=== PATIENT | male | born 1965 | race American Indian/Alaskan Native ===

== ENCOUNTER 2017-05-07 10:01 | Emergency (ER) | payer BC ==
[2017-05-07 14:46] VITALS: BP 142/81
--- NOTE | 2017-05-07 14:46 | Emergency Department Report ---
HPI - General Chief Complaint: Headache Time Seen by Provider: 05/07/17 14:41 - HPI HPI: Mr. Garcia is a healthy 51-year-old male with history of asthma and gout who presents with flulike illness. "I feel fine now. I just want to get checked out." His and granddaughter both have flulike symptoms. Throughout the week he self medicated with rest and hydration for fever headache bodyaches and nonproductive cough. He feels much better. He desires clearance to return back to work. He is currently symptom-free. ED Past Medical Hx - Past Medical History Previous Medical History?: Yes Hx Asthma: Yes Additional medical history: "gout" - Surgical History Past Surgical History?: No - Social History Smoking Status: Current Every Day Smoker Substance Use Type: None - Medications Home Medications: Home Medications Medication Instructions Recorded Confirmed Last Taken Type Colchicine 0.6 mg PO DAILY #20 capsule 09/05/14 Unknown Rx Ibuprofen [Motrin 800 MG tab] 800 mg PO Q8H PRN #30 tablet 09/05/14 Unknown Rx ED Review of Systems ROS: Stated complaint: FLU LIKE SYMPTOMS Other details as noted in HPI Comment: All other systems reviewed and negative Constitutional: fever, malaise, weakness Respiratory: cough Cardiovascular: denies: chest pain Physical Exam - Physical Exam Vital Signs: Vital Signs 05/07/17 10:29 Temperature 98.4 F Pulse Rate 59 L Respiratory 18 Rate Blood Pressure 143/92 O2 Sat by Pulse 96 Oximetry Physical Exam: General: Well-appearing, no acute distress HEENT: Normocephalic atraumatic pupils equal round and reactive to light anicteric sclera Nose: no rhinorrhea Oropharynx: Clear mucous membranes no lesions Neck: supple, no meningismus Chest: Clear to auscultation bilaterally no rales rhonchi no wheezes Cardiac: Regular rate and rhythm no murmurs no rubs no gallops Abdomen: Soft nontender nondistended positive bowel sounds no guarding Extremities: No cyanosis no clubbing no edema Neuro: Moves all extremities 4, no gross deficits Psychiatric: Alert and oriented 4 normal aspect normal judgment normal insight ED Course Vital Signs 05/07/17 10:29 Temperature 98.4 F Pulse Rate 59 L Respiratory 18 Rate Blood Pressure 143/92 O2 Sat by Pulse 96 Oximetry ED Medical Decision Making - Medical Decision Making Mr. Oldsmar is a pleasant well-appearing male with flulike symptoms. Clinical diagnosis of influenza. He has had symptoms for approximately one week. I recommended continuing home therapy. He is currently afebrile. He received education and reassurance. Discharged home in good stable condition. Critical care attestation.: If time is entered above; I have spent that time in minutes in the direct care of this critically ill patient, excluding procedure time. ED Disposition Clinical Impression: Influenza Disposition: DC-01 TO HOME OR SELFCARE Is pt being admited?: No Does the pt Need Aspirin: No Condition: Stable Instructions: Influenza (ED) Referrals: PRIMARY CARE, [Primary Care Provider] - as needed Forms: Work/School Release Form(ED) Time of Disposition: 14:45
== END 2017-05-07 14:55 | disposition home or self-care (01) ==
LOC: ED 10:01
DX: J11.1 Influenza due to unidentified influenza virus with other respiratory manifestations (principal); J45.909 Unspecified asthma, uncomplicated; F17.200 Nicotine dependence, unspecified, uncomplicated
CPT/HCPCS: 99282

== ENCOUNTER 2020-02-21 16:05 | Emergency (ER) | payer SELFPAY ==
[2020-02-21 17:24] VITALS: BP 126/96
[2020-02-21] MEDS ORDERED: KETOROLAC 10 MG TAB PO ONE (17:24)
[2020-02-21] MEDS ORDERED: dexAMETHasone 20 MG/5 ML VIAL IV ONE (17:25)
--- NOTE | 2020-02-21 17:25 | Emergency Department Report ---
ED General Adult HPI - General Chief complaint: Extremity Problem,Nontraumatic Stated complaint: GOUT Time Seen by Provider: 02/21/20 17:24 Source: patient Mode of arrival: Wheelchair Limitations: No Limitations - History of Present Illness Initial comments: 54-year-old -[place] male patient presents with complaints of left ankle pain x 4 days. Patient states he has history of gout in the same foot and this feels similar. He reports that he drink a great deal of beer, ate shellfish, and ate red meat the day prior to his symptoms starting. He rates his pain as a 9/10 in severity and states it worsens with ambulation and movement. He denies any fever/chills/sweats, history of cancer/diabetes, or numbness/tingling/weakness in his ankle or foot. - Related Data Previous Rx's Medication Instructions Recorded Last Taken Type Colchicine 0.6 mg PO DAILY #20 capsule 09/05/14 Unknown Rx Ibuprofen [Motrin 800 MG tab] 800 mg PO Q8H PRN #30 tablet 09/05/14 Unknown Rx Indomethacin 50 mg PO Q8H 5 Days #15 capsule 02/21/20 Unknown Rx predniSONE [Deltasone] 20 mg PO BID 3 Days #6 tab 02/21/20 Unknown Rx Allergies Allergy/AdvReac Type Severity Reaction Status Date / Time No Known Allergies Allergy Unverified 09/05/14 15:10 ED Review of Systems ROS: Stated complaint: GOUT Other details as noted in HPI Constitutional: denies: chills, diaphoresis, fever, malaise, weakness Endocrine: denies: excessive sweating Gastrointestinal: denies: nausea, vomiting Musculoskeletal: joint swelling, arthralgia Skin: denies: rash, lesions, change in color Neurological: denies: headache, numbness, paresthesias Hematological/Lymphatic: denies: easy bleeding, easy bruising ED Past Medical Hx - Past Medical History Previous Medical History?: Yes Hx Asthma: Yes Additional medical history: "gout" - Social History Smoking Status: Current Every Day Smoker Substance Use Type: None - Medications Home Medications: Home Medications Medication Instructions Recorded Confirmed Last Taken Type Colchicine 0.6 mg PO DAILY #20 capsule 09/05/14 Unknown Rx Ibuprofen [Motrin 800 MG tab] 800 mg PO Q8H PRN #30 tablet 09/05/14 Unknown Rx Indomethacin 50 mg PO Q8H 5 Days #15 capsule 02/21/20 Unknown Rx predniSONE [Deltasone] 20 mg PO BID 3 Days #6 tab 02/21/20 Unknown Rx ED Physical Exam - General Limitations: No Limitations General appearance: alert, in no apparent distress - Head Head exam: Present: atraumatic, normocephalic - Eye Eye exam: Present: normal appearance. Absent: scleral icterus - Neck Neck exam: Present: normal inspection - Respiratory Respiratory exam: Absent: respiratory distress - Cardiovascular Cardiovascular Exam: Present: regular rate - Expanded Lower Extremity Exam Left Ankle exam: Present: full ROM, tenderness, swelling (Minimal). Absent: laceration, ecchymosis, deformity, crepidus, erythema Foot/Toe exam: Present: normal inspection, full ROM Neuro vascular tendon exam: Present: no vascular compromise - Neurological Exam Neurological exam: Present: alert, oriented X3 - Psychiatric Psychiatric exam: Present: normal affect, normal mood - Skin Skin exam: Present: warm, dry, intact, normal color. Absent: rash ED Course Vital Signs 02/21/20 02/21/20 17:23 17:31 Temperature 98 F Pulse Rate 97 H Respiratory 18 20 Rate Blood Pressure 126/96 [Right] O2 Sat by Pulse 98 Oximetry ED Medical Decision Making - Medical Decision Making 54-year-old -[place] male patient presents with complaints of left ankle pain x 4 days. Patient states he has history of gout in the same foot and this feels similar. He reports that he drink a great deal of beer, ate shellfish, and ate red meat the day prior to his symptoms starting. He rates his pain as a 9/10 in severity and states it worsens with ambulation and movement. He denies any fever/chills/sweats, history of cancer/diabetes, or numbness/tingling/weakness in his ankle or foot. Will treat for gout with NSAIDs and steroids. Recommend follow-up with primary care. He is well-appearing and stable for discharge home. Strict return precautions were discussed in detail with patient who verbalized understanding. Critical care attestation.: If time is entered above; I have spent that time in minutes in the direct care of this critically ill patient, excluding procedure time. ED Disposition Clinical Impression: Gout flare Qualifiers: Gout site: ankle Gout etiology: idiopathic Laterality: left Qualified Code(s): M10.072 - Idiopathic gout, left ankle and foot Disposition: DC-01 TO HOME OR SELFCARE Is pt being admited?: No Condition: Stable Instructions: Low-Purine Eating Plan Prescriptions: predniSONE [Deltasone] 20 mg PO BID 3 Days #6 tab Indomethacin 50 mg PO Q8H 5 Days #15 capsule Referrals: [facility] [Provider Group] - 3-5 Days Forms: Work/School Release Form(ED)
== END 2020-02-21 17:44 | disposition home or self-care (01) ==
LOC: ED 16:05
DX: M10.072 Idiopathic gout, left ankle and foot (principal)
CPT/HCPCS: 96374; 99282; J1100

== ENCOUNTER 2020-06-27 17:29 | Emergency (ER) | payer OTHER ==
[2020-06-27 17:35] VITALS: BP 149/93
[2020-06-27] MEDS ORDERED: KETOROLAC 60 MG/2 ML INJ IM ONE (18:08)
[2020-06-27] MEDS ORDERED: dexAMETHasone 20 MG/5 ML VIAL IV ONE (18:08)
--- NOTE | 2020-06-27 18:56 | Emergency Department Report ---
ED General Adult HPI - General Chief complaint: Extremity Injury, Lower Stated complaint: LEFT FOOT GOUT Time Seen by Provider: 06/27/20 17:32 Source: patient Mode of arrival: Ambulatory Limitations: No Limitations - History of Present Illness Initial comments: 55-year-old -[place] male patient presents with complaints of left ankle pain due to a gouty flare x 1 day. Patient states his gout flares only occurring his left ankle. He denies any injury, fever/chills/sweats, redness to the joint, or difficulty moving the joint. No numbness or tingling per patient. He rates his pain as a 10/10 in severity. He admits to recently drinking a high intake of beer Severity scale (0 -10): 7 - Related Data Previous Rx's Medication Instructions Recorded Last Taken Type Colchicine 0.6 mg PO DAILY #20 capsule 09/05/14 Unknown Rx Ibuprofen [Motrin 800 MG tab] 800 mg PO Q8H PRN #30 tablet 09/05/14 Unknown Rx Acetaminophen/Codeine [Tylenol 1 tab PO Q8H PRN #6 tab 06/27/20 Unknown Rx /Codeine # 3 tab] Indomethacin 50 mg PO Q8H 5 Days #15 capsule 06/27/20 Unknown Rx predniSONE [Deltasone] 20 mg PO BID 3 Days #6 tab 06/27/20 Unknown Rx Allergies Allergy/AdvReac Type Severity Reaction Status Date / Time No Known Allergies Allergy Verified 06/27/20 17:29 ED Review of Systems ROS: Stated complaint: LEFT FOOT GOUT Other details as noted in HPI Constitutional: denies: chills, fever, malaise Cardiovascular: denies: chest pain Musculoskeletal: arthralgia. denies: joint swelling Skin: denies: rash, lesions, change in color ED Past Medical Hx - Past Medical History Hx Asthma: Yes Additional medical history: "gout" - Surgical History Past Surgical History?: No - Social History Smoking Status: Never Smoker Substance Use Type: None - Medications Home Medications: Home Medications Medication Instructions Recorded Confirmed Last Taken Type Colchicine 0.6 mg PO DAILY #20 capsule 09/05/14 Unknown Rx Ibuprofen [Motrin 800 MG tab] 800 mg PO Q8H PRN #30 tablet 09/05/14 Unknown Rx Acetaminophen/Codeine [Tylenol 1 tab PO Q8H PRN #6 tab 06/27/20 Unknown Rx /Codeine # 3 tab] Indomethacin 50 mg PO Q8H 5 Days #15 capsule 06/27/20 Unknown Rx predniSONE [Deltasone] 20 mg PO BID 3 Days #6 tab 06/27/20 Unknown Rx ED Physical Exam - General Limitations: No Limitations General appearance: alert, in no apparent distress - Head Head exam: Present: atraumatic, normocephalic - Eye Eye exam: Absent: scleral icterus - Respiratory Respiratory exam: Absent: respiratory distress - Cardiovascular Cardiovascular Exam: Present: regular rate - Extremities Exam Extremities exam: Present: full ROM, tenderness (Tenderness to palpation noted to left ankle without erythema or swelling; no warmth to the joint; normal pedal pulse) - Neurological Exam Neurological exam: Present: alert, oriented X3 - Psychiatric Psychiatric exam: Present: normal affect, normal mood - Skin Skin exam: Present: warm, dry, intact, normal color. Absent: rash, diaphoretic, erythema, ecchymosis ED Course Vital Signs 06/27/20 17:34 Temperature 99.1 F Pulse Rate 87 Respiratory 20 Rate Blood Pressure 149/93 O2 Sat by Pulse 96 Oximetry ED Medical Decision Making - Medical Decision Making 55-year-old -[place] male patient presents with complaints of left ankle pain due to a gouty flare x 1 day. Patient states his gout flares only occurring his left ankle. He denies any injury, fever/chills/sweats, redness to the joint, or difficulty moving the joint. No numbness or tingling per patient. He rates his pain as a 10/10 in severity. He admits to recently drinking a high intake of beer Patient given Decadron and Toradol for gout flare. Will send home with NSAIDs and prednisone. Recommend follow-up with primary care in 3 to 5 days. Strict return precautions discussed in detail with patient who verbalizes understanding. His vitals are stable he is well-appearing and stable for discharge home Critical care attestation.: If time is entered above; I have spent that time in minutes in the direct care of this critically ill patient, excluding procedure time. ED Disposition Clinical Impression: Acute gout of ankle Disposition: - TO HOME OR SELFCARE Is pt being admited?: No Condition: Stable Instructions: Low-Purine Eating Plan Prescriptions: predniSONE [Deltasone] 20 mg PO BID 3 Days #6 tab Indomethacin 50 mg PO Q8H 5 Days #15 capsule Acetaminophen/Codeine [Tylenol /Codeine # 3 tab] 1 tab PO Q8H PRN #6 tab PRN Reason: Pain , Severe (7-10) Referrals: PRIMARY CARE,MD [Primary Care Provider] - 3-5 Days Forms: Work/School Release Form(ED)
== END 2020-06-27 19:25 | disposition home or self-care (01) ==
LOC: ED 17:29
DX: M10.9 Gout, unspecified (principal); J45.909 Unspecified asthma, uncomplicated; Z79.899 Other long term (current) drug therapy
CPT/HCPCS: 96372; 96374; 99282; J1100; J1885

== ENCOUNTER 2021-10-14 14:50 | Emergency (ER) | payer SELFPAY ==
[2021-10-14 15:43] VITALS: BP 188/96
--- NOTE | 2021-10-14 15:48 | Emergency Department Report ---
<KANDICE MILLER - Last Filed: 10/15/21 11:49> ED Extremity Problem HPI - General Chief complaint: Extremity Problem,Nontraumatic Stated complaint: LT FOOT PAIN Time Seen by Provider: 10/14/21 15:43 Source: patient Mode of arrival: Ambulatory Limitations: No Limitations - History of Present Illness Initial comments: 56-year-old black male with a past medical history of hypertension and gout presents to the emergency department for evaluation of left ankle pain and swelling. He states that he woke up yesterday morning with pain and swelling, he denies any injury or trauma. He states that he has a history of gout and symptoms are consistent with the last time he had a gout flare. He states that he has also been eating a lot of red meat because he just has to have his red meat. MD Complaint: extremity pain, extremity swelling -: Gradual, days(s) (2) Location: left, other History of Same: Yes (Ankle) -: No myalgia, Yes arthralgia, No fever, No associated dyspnea Severity scale (0 -10): 10 Quality: burning, aching Consistency: constant Associated Symptoms: arthralgias. denies: chest pain, shortness of breath, fever, myalgias, rash - Related Data Previous Rx's Medication Instructions Recorded Last Taken Type Colchicine 0.6 mg PO DAILY #20 capsule 09/05/14 Unknown Rx Ibuprofen [Motrin 800 MG tab] 800 mg PO Q8H PRN #30 tablet 09/05/14 Unknown Rx Acetaminophen/Codeine [Tylenol 1 tab PO Q8H PRN #6 tab 06/27/20 Unknown Rx /Codeine # 3 tab] Indomethacin 50 mg PO Q8H 5 Days #15 capsule 06/27/20 Unknown Rx predniSONE [Deltasone] 20 mg PO BID 3 Days #6 tab 06/27/20 Unknown Rx Colchicine 0.6 mg PO DAILY 5 Days #15 tab 10/14/21 Unknown Rx Indomethacin 50 mg PO Q8H PRN #30 cap 10/14/21 Unknown Rx predniSONE [Deltasone] 50 mg PO QDAY 5 Days #5 tab 10/14/21 Unknown Rx Allergies Allergy/AdvReac Type Severity Reaction Status Date / Time No Known Allergies Allergy Verified 06/27/20 17:29 ED Review of Systems Comment: All other systems reviewed and negative Constitutional: denies: chills, fever Eyes: denies: vision change ENT: denies: throat pain, congestion Respiratory: denies: shortness of breath, SOB with exertion Cardiovascular: denies: chest pain, palpitations Gastrointestinal: denies: abdominal pain, nausea, vomiting Genitourinary: denies: urgency, dysuria Musculoskeletal: denies: back pain Skin: denies: rash, lesions Neurological: denies: headache, weakness ED Past Medical Hx - Past Medical History Hx Asthma: Yes Additional medical history: "gout" - Social History Smoking Status: Never Smoker Substance Use Type: None - Medications Home Medications: Home Medications Medication Instructions Recorded Confirmed Last Taken Type Colchicine 0.6 mg PO DAILY #20 capsule 09/05/14 Unknown Rx Ibuprofen [Motrin 800 MG tab] 800 mg PO Q8H PRN #30 tablet 09/05/14 Unknown Rx Acetaminophen/Codeine [Tylenol 1 tab PO Q8H PRN #6 tab 06/27/20 Unknown Rx /Codeine # 3 tab] Indomethacin 50 mg PO Q8H 5 Days #15 capsule 06/27/20 Unknown Rx predniSONE [Deltasone] 20 mg PO BID 3 Days #6 tab 06/27/20 Unknown Rx Colchicine 0.6 mg PO DAILY 5 Days #15 tab 10/14/21 Unknown Rx Indomethacin 50 mg PO Q8H PRN #30 cap 10/14/21 Unknown Rx predniSONE [Deltasone] 50 mg PO QDAY 5 Days #5 tab 10/14/21 Unknown Rx ED Physical Exam - General Limitations: No Limitations General appearance: alert, in no apparent distress - Head Head exam: Present: atraumatic, normocephalic - Eye Eye exam: Present: normal appearance. Absent: conjunctival injection - Neck Neck exam: Present: normal inspection. Absent: lymphadenopathy - Respiratory Respiratory exam: Absent: respiratory distress - Cardiovascular Cardiovascular Exam: Present: regular rate - GI/Abdominal GI/Abdominal exam: Absent: distended - Expanded Lower Extremity Exam Left Lower Leg exam: Present: normal inspection Ankle exam: Present: tenderness, swelling, erythema. Absent: full ROM, abrasion, laceration, ecchymosis, deformity, crepidus, dislocation Foot/Toe exam: Present: normal inspection Neuro vascular tendon exam: Present: no vascular compromise. Absent: pulse deficit, abnormal cap refill, extremity cold to touch, pallor Gait: Positive: observed and limited by pain - Back Exam Back exam: Present: normal inspection - Neurological Exam Neurological exam: Present: alert, oriented X3 - Psychiatric Psychiatric exam: Present: normal affect, normal mood - Skin Skin exam: Present: warm, dry, intact, normal color ED Medical Decision Making - Medical Decision Making 56-year-old black male with a past medical history of hypertension and gout presents to the emergency department for evaluation of left ankle pain and swelling. He states that he woke up yesterday morning with pain and swelling, he denies any injury or trauma. He states that he has a history of gout and symptoms are consistent with the last time he had a gout flare. He states that he has also been eating a lot of red meat because he just has to have his red meat. Physical exam and complaints consistent with gout flare of the left ankle. Patient be discharged home with 5-day course of colchicine 0.6 Prednisone 50 mg and indomethacin as needed for pain. He is advised to take medications as prescribed and follow-up with primary care provider if no improvement or worsening symptoms. He is advised to return to the emergency department as needed. He verbalizes understanding of and agreement with plan of care. ED Disposition Clinical Impression: Gout of left ankle Disposition: 01 HOME / SELF CARE / HOMELESS Is pt being admited?: No Does the pt Need Aspirin: No Condition: Stable Instructions: Low-Purine Eating Plan Additional Instructions: Take medications as prescribed. Follow up with your primary care provider if no improvement or worsening symptoms. Prescriptions: Colchicine 0.6 mg PO DAILY 5 Days #15 tab predniSONE [Deltasone] 50 mg PO QDAY 5 Days #5 tab Indomethacin 50 mg PO Q8H PRN #30 cap PRN Reason: Pain, Moderate (4-6) Referrals: JENNIFER WINCHESTER MD [Staff Physician] - 3-5 Days Forms: Work/School Release Form(ED) Time of Disposition: 15:49 <TIFFANY SHEPHERD - Last Filed: 10/18/21 01:27> ED Review of Systems ROS: Stated complaint: LT FOOT PAIN Other details as noted in HPI ED Course Vital Signs 10/14/21 15:40 Temperature 98.9 F Pulse Rate 74 Respiratory 17 Rate Blood Pressure 188/96 [Right] O2 Sat by Pulse 98 Oximetry Critical care attestation.: If time is entered above; I have spent that time in minutes in the direct care of this critically ill patient, excluding procedure time. ED Disposition Is pt being admited?: No Does the pt Need Aspirin: No
== END 2021-10-14 16:00 | disposition home or self-care (01) ==
LOC: ED 14:50
DX: M10.072 Idiopathic gout, left ankle and foot (principal); J45.909 Unspecified asthma, uncomplicated
CPT/HCPCS: 99281